=== PATIENT | female | born 1975 | race Caucasian/White ===

== ENCOUNTER 2023-08-05 08:10 | Day surgery (SDC) | payer OTHER ==
[2023-08-05] MEDS ORDERED: fentaNYL 100 MCG/2 ML SDV ONE (08:40)
[2023-08-05] MEDS ORDERED: Propofol 200 MG/20 ML SDV ONE ×2 (08:40→10:07)
[2023-08-05] MEDS ORDERED: Midazolam 1 MG/ML 2 ML SDV ONE (08:40)
[2023-08-05] MEDS: Lactated Ringers 1,000 ML IV SCH (09:09)
== END 2023-08-05 12:05 | disposition home or self-care (01) ==
LOC: JP.SDS 08:10
PROVIDERS: ATTEND Family Medicine
DX: K29.50 Unspecified chronic gastritis without bleeding (principal); D50.9 Iron deficiency anemia, unspecified; K59.00 Constipation, unspecified; Z88.0 Allergy status to penicillin; Z88.2 Allergy status to sulfonamides; Z88.6 Allergy status to analgesic agent
CPT/HCPCS: 43239; 45380; J2250; J2704; J3010; J7120; 88305